=== PATIENT | male | born 1960 | race Caucasian/White ===

== ENCOUNTER → 2019-06-30 | Outpatient (CLI) | payer BC ==
--- NOTE | 2019-06-30 23:21 | CONS ---
CONSULTATION REASON FOR CONSULTATION: Sleep apnea. Jesus is 58. I diagnosed this patient having obstructive sleep apnea back in 2011. At that time the patient was found to have severe MELVINA with an AHI of 82 and the patient was given a CPAP pressure of 14 cm of water. He is still using the same CPAP unit, which is a Respironics Madrigal unit set at a pressure of 14 cm. He is using a Rodriguez FX small-sized nose mask. Treatment remains extremely successful and the patient remains compliant. At times his has noted that he is having some limited amount of snoring. In general, the patient has been averaging about 8 hours and 12 minutes of CPAP use per night and his CPAP use for more than 4 hours is 100%. His AHI is down to 2.2. No periodic breathing. No leaks around the mask. Treatment as such is extremely successful. No new-onset comorbidities other than BPH. PAST MEDICAL HISTORY: 1. MELVINA. 2. BPH. 3. Obesity. PAST SURGICAL HISTORY: 1. Achilles tendon surgery in 2011. 2. Left shoulder surgery in 2013. DRUG ALLERGIES: NOT KNOWN. OUTPATIENT MEDICATIONS: 1. Citalopram 40 mg each morning. 2. Ibuprofen 800 mg on a p.r.n. basis. 3. Multivitamin. SOCIAL HISTORY: Nonsmoker. No history of alcoholism. No history of IV drugs. FAMILY HISTORY: Negative for sleep apnea. Family history is positive for heart problems and hypertension. REVIEW OF SYSTEMS: Fourteen-point review of systems was done. Occasional snoring while on the CPAP, yet for the most part there are no reported apneas, no insomnia, no choking or gasping for air. No nocturia. No grinding of the teeth. No sleepwalking. No dry mouth. No anxiety or panic attacks. No palpitations. No heartburn. No chest pain. No shortness of breath. He has history of sexual dysfunction, history of depression, for which he is on citalopram for now. He does not fall asleep during day-to-day activities. He is wide awake during the day. He is going to bed between 7 and 8 p.m., waking up at 4 a.m. in the morning without being somnolent or sleepy. PHYSICAL EXAMINATION: VITAL SIGNS: BP is 149/87, pulse 62, respirations 16, temperature 97.3, saturation 96% on room air. Height is 5 feet 10 inches, weight is 280. Neck size is 20 inches. GENERAL APPEARANCE: Calm, comfortable. HEAD: Atraumatic, normocephalic. NECK: Supple. No JVD. No goiter or neck masses. Mallampati class IV. LUNGS: Clear to auscultation. HEART: Heart sounds are regular rate and rhythm. Normal S1, S2. No S3, S4. No murmurs. ABDOMEN: Soft, nontender. No organomegaly. EXTREMITIES: No edema. No cyanosis or clubbing. NEUROLOGIC: Alert and oriented x3. No focal neurological deficits. PSYCHIATRIC: Negative for anxiety. Positive for depression. IMPRESSION: 1. Symptomatic severe obstructive sleep apnea, apnea/hypopnea index of 82, still on a CPAP pressure of 14. Treatment remains extremely successful and the patient is utilizing the same pressure that was offered to him back in 2011. His weight has remained stable between 278 and 280 pounds. Meanwhile the patient is having some occasional limited snoring. 2. Obesity; body mass index of 39.6. 3. Hypersomnia, improved while on CPAP. 4. Benign prostatic hypertrophy. 5. History of depression, maintained on citalopram. PLAN: 1. Encourage weight loss. 2. Increase the pressure up to 15 cm of water to eliminate the snoring. 3. Continue using the Rodriguez FX small-sized nose pillows. 4. Encourage further weight loss. 5. See me back in a year's time in followup, earlier if needed. Treatment is successful for the time being. KAVITHA / THERESAN: [id number] /
== END | disposition home or self-care (01) ==
LOC: SLEEP 16:03
PROVIDERS: ATTEND Internal Medicine Critical Care Medicine
DX: G47.33 Obstructive sleep apnea (adult) (pediatric) (principal); E66.9 Obesity, unspecified; N40.0 Benign prostatic hyperplasia without lower urinary tract symptoms; F32.9 Major depressive disorder, single episode, unspecified; Z68.39 Body mass index [BMI] 39.0-39.9, adult; Z99.89 Dependence on other enabling machines and devices; Z98.890 Other specified postprocedural states; Z79.899 Other long term (current) drug therapy
CPT/HCPCS: 99211

== ENCOUNTER → 2019-07-10 | Outpatient (CLI) | payer BC ==
--- NOTE | 2019-07-10 11:02 | MR ---
EXAMINATION TYPE: MR iac wo/w con DATE OF EXAM: 07/10/2019 COMPARISON: None HISTORY: Tinnitus / Hearing loss left TECHNIQUE: Multiplanar, multisequence images of the brain and brainstem with small modvj-bi-nbus and high resolu tion images through the internal auditory canals is performed without and with IV contrast, utilizing 13 mL intravenous Gadavist . FINDINGS: Diffusion weighted images demonstrate no evidence of a recent infarct or other diffusion ab normality. There is probable arachnoid cyst posterior to the right cerebellar hemisphere measuring 5 .5 cm x 2.2 cm in size.. Scattered hyperintensities on inversion recovery T2-weighted sequences are p resent within the subcortical and juxtacortical white matter. Approximately 15-20 lesions are present , the largest on axial image 23 in the left parietal lobe measures 5 mm. The ventricular system and c isternal spaces are normal in size and appearance. The brain volume is age appropriate. There is no cerebellopontine angle mass. Internal auditory canals show a normal appearance. No evident mass. Midline structures demonstrate normal morphology. The craniocervical junction appears within normal limits. Post contrast images demonstrate no abnormal enhancement. The dural venous sinuses appear pa tent. The visualized sinuses are remarkable for mucosal disease within the ethmoid air cells and air- fluid level in the sphenoid sinus and the globes are intact. IMPRESSION: Arachnoid cyst posterior fossa as described. Nonspecific white matter demyelination could be related to Lyme disease, multiple sclerosis, hypertension, migraine headaches, vasculitis. Mild s inus disease, correlate for sphenoid sinusitis.
== END | disposition home or self-care (01) ==
LOC: RADMRIMAIN 08:46
PROVIDERS: ATTEND Otolaryngology
DX: G93.0 Cerebral cysts (principal); R90.89 Other abnormal findings on diagnostic imaging of central nervous system; G37.9 Demyelinating disease of central nervous system, unspecified; H91.8X2 Other specified hearing loss, left ear
CPT/HCPCS: 70553; A9585

== ENCOUNTER → 2020-09-06 | Outpatient (CLI) | payer BC ==
--- NOTE | 2020-09-06 17:04 | PN ---
PROGRESS NOTE This is a followup on this [facility] his obstructive sleep apnea. The patient has been diagnosed having severe MELVINA with an AHI of 82 and the patient is currently on a CPAP pressure of 15 cm of water. He has an older generation Madrigal Respironics unit. The machine is very much functional. The machine is non noisy. Treatment has been effective. No issues with his CPAP treatment. Interval history is positive for a TURP and since then he has been urinating more effectively and the patient is taking Myrbetriq. No respiratory difficulties. No nighttime arousals for gasping or choking sensation. Based on the compliance data, the patient has been averaging around 8 hours of sleep per night. The patient is going to bed between 6-8 p.m. and waking up around 5 to 6 am in the morning. His CPAP use for more than 4 hours is 100%. No leaks. No periodic breathing. His apnea-hypopnea index is down to 2.1 while on treatment. He is using a Rodriguez FX nose pillows. No respiratory difficulties, otherwise. His interval history is positive for a TURP that was performed for symptoms of BPH. REVIEW OF SYSTEMS: Fourteen-point review of system was done and positive findings are mentioned in history of present illness. BP is 157/91, pulse 56, respirations 16, temperature 97.7, saturation 97% on room air. Height is 5, 11 inches, weight is 284 and neck size 19-3/4 of an inch, BMI 39.6. GENERAL APPEARANCE: Calm, comfortable. HEAD: Atraumatic, normocephalic. NECK: Supple. No JVD. No goiter or neck masses. LUNGS: Clear to auscultation. HEART: Heart sounds are regular rate and rhythm, normal S1, S2. No murmurs. ABDOMEN: Soft, nontender, no organomegaly. EXTREMITIES: No edema, no cyanosis or clubbing. NEUROLOGIC: Awake and alert, there is no focal neurological deficits. PSYCHIATRIC: Negative for anxiety or depression. IMPRESSION: 1. MELVINA severe with an AHI of 82, successfully treated with a CPAP pressure of 15 cm of water. 2. Snoring, recovered. 3. Obesity. Weight is stable with a BMI of 39.6 with a current weight of 284 pounds. 4. Hypersomnia, recovered. 5. BPH, status post TURP. 6. Chronic anxiety/depression. PLAN: 1. Continue same medication. 2. Encourage further weight loss. 3. Keep the Rodriguez FX nasal pillows. 4. Continue CPAP therapy at a pressure of 15 cm of water. 5. No need to update the machine at this point in time as long as his treatment is successful. See me back in a few years in followup. His DME is [facility]. MMODL / IJN: [id number] /
== END | disposition home or self-care (01) ==
LOC: SLEEP 14:40
PROVIDERS: ATTEND Internal Medicine Critical Care Medicine
DX: G47.33 Obstructive sleep apnea (adult) (pediatric) (principal); E66.9 Obesity, unspecified; G47.10 Hypersomnia, unspecified; F32.9 Major depressive disorder, single episode, unspecified; F41.9 Anxiety disorder, unspecified; Z99.89 Dependence on other enabling machines and devices; Z98.890 Other specified postprocedural states; Z68.39 Body mass index [BMI] 39.0-39.9, adult

== ENCOUNTER → 2020-11-04 | Day surgery (SDC) | payer BC ==
[2020-10-31 12:00] VITALS: BMI 40.8
[~2020-11-04] MED LIST: LACTATED RINGERS 1,000 ML IV SCH; LIDOCAINE 1% (10MG/ML) FOR IV START INTRADERMA ONE; PROPOFOL 10 MG/ML 20 ML VIAL IV ONE
[2020-11-04 09:05] VITALS: RESP 16; TEMP 97.5
--- NOTE | 2020-11-04 10:15 | P.PCN ---
Date of Procedure: 11/04/20 Procedure(s) Performed: BRIEF HISTORY: Patient is a 59-year-old pleasant 8 male scheduled for an elective colonoscopy as a part of screening for colorectal neoplasia and family history of colon cancer. Mother was diagnosed with colon cancer at age 70. PROCEDURE PERFORMED: Colonoscopy. PREOPERATIVE DIAGNOSIS: Screening for colon cancer/family history of colon cancer. IV sedation per Anesthesia. PROCEDURE: After informed consent was obtained, the patient, was brought into the endoscopy unit. IV sedation was administered by Anesthesia under continuous monitoring. Digital rectal examination was normal. Initially the Olympus CF-160 flexible video colonoscope was then inserted in the rectum, gradually advanced into the cecum without any difficulty. Careful examination was performed as the scope was gradually being withdrawn. Ileocecal valve and the appendiceal orifice were visualized and appeared normal. Prep was excellent. Mucosa of the cecum, ascending colon, transverse colon, descending colon, sigmoid colon, and rectum appeared normal. Retroflexion was performed in the rectum and monitor hemorrhoids were seen. The patient tolerated the procedure well. IMPRESSION: Normal-appearing colon from rectum to cecum with no evidence of colorectal neoplasia . Small internal hemorrhoids. RECOMMENDATIONS: Findings of this examination were discussed with the patient as well as his family.. He was advised to have a repeat screening colonoscopy every 5 years because of the family history of colon cancer
[2020-11-04 10:57] VITALS: BP 128/81; PULSE 53
== END ==
LOC: ORWHC2ENDO 08:50
PROVIDERS: ATTEND Internal Medicine Gastroenterology
DX: Z12.11 Encounter for screening for malignant neoplasm of colon (principal); K64.8 Other hemorrhoids; Z80.0 Family history of malignant neoplasm of digestive organs; G47.33 Obstructive sleep apnea (adult) (pediatric); Z99.89 Dependence on other enabling machines and devices; F41.9 Anxiety disorder, unspecified; Z79.1 Long term (current) use of non-steroidal anti-inflammatories (NSAID); Z79.899 Other long term (current) drug therapy
CPT/HCPCS: J2704; G0105

== ENCOUNTER 2021-01-29 08:52 | Emergency (ER) | payer BC ==
[2021-01-29 08:57] VITALS: BP 126/78
[2021-01-29] MEDS ORDERED: SODIUM CHLORIDE 0.9% 1,000 ML IV STA (09:13)
--- NOTE | 2021-01-29 09:21 | ED ---
Recheck HPI - General Chief Complaint: Recheck/Abnormal Lab/Rx Stated Complaint: fatigue,headache,fever Time Seen by Provider: 01/29/21 09:00 Source: patient Mode of arrival: ambulatory Limitations: no limitations - History of Present Illness Initial Comments: Patient is a 60-year-old male presenting to the emergency Department with complaints of fatigue, fever and headache for the past 2 days. Patient states he received his first covid vaccine on , 3 days ago, starting the following day he started having extreme fatigue, headache and intermittent fevers. He has been alternating between Tylenol and Motrin. He states that the body aches are also severe, his symptoms has persisted until today as we've decided to come in to be seen. To his knowledge, he has not had the Covid virus. He states his was positive for the virus 2 weeks ago. He did not display any symptoms before his vaccine. He denies any chest pains or shortness of breath, mild cough. He admits to some mild nausea, no vomiting or diarrhea. His appetite is low. He has no further complaints at this time. He did take a Motrin about 2 hours prior to arrival. His vital signs are stable. - Related Data Home Medications Medication Instructions Recorded Confirmed Cholecalciferol [Vitamin D3 (25 2,000 unit PO DAILY 10/31/20 11/04/20 Mcg = 1000 Iu)] Citalopram Hydrobromide 40 mg PO DAILY 10/31/20 11/04/20 [Citalopram HBr] Meloxicam [Mobic] 7.5 mg PO DAILY PRN 10/31/20 11/04/20 Multivit-Min/Folic/Vit K/Lycop 1 each PO DAILY 10/31/20 11/04/20 [Men's Multivitamin Tablet] [place]-3-6-9 1 cap PO DAILY 10/31/20 11/04/20 Psyllium Husk [Metamucil] 4 tab PO DAILY 10/31/20 11/04/20 Allergies Allergy/AdvReac Type Severity Reaction Status Date / Time No Known Allergies Allergy Verified 01/29/21 08:57 Review of Systems ROS Statement: Those systems with pertinent positive or pertinent negative responses have been documented in the HPI. ROS Other: All systems not noted in ROS Statement are negative. Past Medical History Past Medical History: Osteoarthritis (OA), Sleep Apnea/CPAP/BIPAP Additional Past Medical History / Comment(s): C-PAP MACHINE., ARTHRITIS HANDS. History of Any Multi-Drug Resistant Organisms: None Reported Past Surgical History: Prostate Surgery Additional Past Surgical History / Comment(s): TURP (07/2019), LEFT SHOULDER SURGERY, (2018), ACHILLES LEFT HEEL (2011) Past Anesthesia/Blood Transfusion Reactions: No Reported Reaction Past Psychological History: Anxiety Smoking Status: Never smoker Past Alcohol Use History: Occasional Past Drug Use History: None Reported - Past Family History Mother Family Medical History: Cancer Additional Family Medical History / Comment(s): PASSED FROM COLON CANCER (APRIL 2020) General Exam - General Exam Comments Initial Comments: GENERAL: Patient is well-developed and well-nourished. Patient is nontoxic and in no acute distress. HEAD: Atraumatic, normocephalic. EYES: Pupils equal round and reactive to light, extraocular movements intact, sclera anicteric, conjunctiva are normal. Eyelids were unremarkable. ENT: TMs normal, nares patent, oropharynx clear without exudates. Moist mucous membranes. NECK: Normal range of motion, supple without lymphadenopathy or JVD. LUNGS: Unlabored respirations. Breath sounds clear to auscultation bilaterally and equ al. No wheezes rales or rhonchi. HEART: Regular rate and rhythm without murmurs, rubs or gallops. ABDOMEN: Soft, nontender, normoactive bowel sounds. No guarding, no rebound. No masses appreciated. : Deferred MUSCULOSKELETAL: Normal extremities with adequate strength and normal range of motion, no pitting or edema. No clubbing or cyanosis. NEUROLOGICAL: Patient is alert and oriented x 3. Motor and sensory are also intact. Cranial nerves II through XII grossly intact. Symmetrical smile. Normal speech, normal gait. PSYCH: Normal mood, normal affect. SKIN: Warm, Dry, normal turgor, no rashes or lesions noted. Limitations: no limitations Course Vital Signs 01/29/21 01/29/21 08:54 08:57 Temperature 99.0 F 99.6 F Pulse Rate 76 90 Respiratory 20 18 Rate Blood Pressure 126/78 126/78 O2 Sat by Pulse 98 96 Oximetry Medical Decision Making - Medical Decision Making Patient is a 60-year-old male here for body aches, fatigue, headache and intermittent fevers over the past 3 days after receiving his first shot of Covid vaccine. His vital signs are stable upon arrival. White count is normal, sodium is 133, rapid Covid is positive. I discussed these findings with the patient. Patient most likely had a virus before his vaccine which then could have exacerbated his symptoms. Patient did meet criteria for Covid antiviral therapy. Patient did receive this infusion, no adverse side effects. He is stable for discharge. He will follow up with his PCP. He is in agreement with this plan of care. Return parameters were discussed with the patient and he verbalized understanding. Case discussed with Dr. Crenshaw. - Lab Data Result diagrams: 01/29/21 09:21 01/29/21 09:21 Lab Results 01/29/21 01/29/21 01/29/21 Range/Units 09:21 09:21 09:21 WBC 4.5 (3.8-10.6) k/uL RBC 4.90 (4.30-5.90) m/uL Hgb 14.9 (13.0-17.5) gm/dL Hct 41.2 (39.0-53.0) % MCV 84.2 (80.0-100.0) fL MCH 30.4 (25.0-35.0) pg MCHC 36.1 (31.0-37.0) g/dL RDW 13.1 (11.5-15.5) % Plt Count 134 L (150-450) k/uL MPV 7.7 Neutrophils % 82 % Lymphocytes % 11 % Monocytes % 5 % Eosinophils % 0 % Basophils % 0 % Neutrophils # 3.7 (1.3-7.7) k/uL Lymphocytes # 0.5 L (1.0-4.8) k/uL Monocytes # 0.2 (0-1.0) k/uL Eosinophils # 0.0 (0-0.7) k/uL Basophils # 0.0 (0-0.2) k/uL Hyperchromasia Slight Sodium 133 L (137-145) mmol/L Potassium 3.5 (3.5-5.1) mmol/L Chloride 104 (98-107) mmol/L Carbon Dioxide 22 (22-30) mmol/L Anion Gap 7 mmol/L BUN 16 (9-20) mg/dL Creatinine 0.90 (0.66-1.25) mg/dL Est GFR (CKD-EPI)AfAm >90 (>60 ml/min/1.73 sqM) Est GFR (CKD-EPI)NonAf >90 (>60 ml/min/1.73 sqM) Glucose 127 H (74-99) mg/dL Calcium 8.4 (8.4-10.2) mg/dL Total Bilirubin 0.9 (0.2-1.3) mg/dL AST 75 H (17-59) U/L ALT 48 (4-49) U/L Alkaline Phosphatase 86 (38-126) U/L Total Protein 6.5 (6.3-8.2) g/dL Albumin 3.7 (3.5-5.0) g/dL Coronavirus (PCR) Detected A (Not Detectd) Disposition Clinical Impression: COVID-19 Disposition: HOME SELF-CARE Condition: Stable Instructions (If sedation given, give patient instructions): Coronavirus Disease 2019 (COVID-19) Additional Instructions: Please return to the Emergency Department if symptoms worsen or any other concerns. Continue Tylenol and/or Motrin for fever and body aches. Increase water intake. Follow-up with your regular doctor. Is patient prescribed a controlled substance at d/c from ED?: No Referrals: Aida Shukla MD [Primary Care Provider] - 1-2 days Time of Disposition: 12:09
[2021-01-29 09:43] LABS: ALT 48 U/L (4-49); AST 75 U/L (17-59); African American GFR (CKD) >90 (>60 ml/min/1.73 sqM); Albumin 3.7 g/dL (3.5-5.0); Alkaline Phosphatase 86 U/L (38-126); Anion Gap 7 mmol/L; Blood Urea Nitrogen 16 mg/dL (9-20); Calcium 8.4 mg/dL (8.4-10.2); Carbon Dioxide 22 mmol/L (22-30); Chloride 104 mmol/L (98-107); Glucose 127 mg/dL (74-99); Non-African American GFR(CKD) >90 (>60 ml/min/1.73 sqM); Potassium 3.5 mmol/L (3.5-5.1); Sodium 133 mmol/L (137-145); Total Bilirubin 0.9 mg/dL (0.2-1.3); Total Protein 6.5 g/dL (6.3-8.2)
[2021-01-29 09:50] LABS: Basophils % (A) 0 %; Eosinophils % (A) 0 %; HCT 41.2 % (39.0-53.0); HGB 14.9 gm/dL (13.0-17.5); Hyperchromasia Slight; Lymphocytes # (A) 0.5 k/uL (1.0-4.8); Lymphocytes % (A) 11 %; MCH 30.4 pg (25.0-35.0); MCHC 36.1 g/dL (31.0-37.0); MCV 84.2 fL (80.0-100.0); Mean Platelet Volume 7.7; Monocytes # (A) 0.2 k/uL (0-1.0); Monocytes % (A) 5 %; Neutrophils # (A) 3.7 k/uL (1.3-7.7); Neutrophils % (A) 82 %; Platelet Count 134 k/uL (150-450); RDW 13.1 % (11.5-15.5); WBC 4.5 k/uL (3.8-10.6)
[2021-01-29] MEDS ORDERED: BAMLANIVIMAB (EUA) 700 MG, ETESEVIMAB (EUA) 1,400 MG in SODIUM CHLORIDE 0.9% 50 ML IVPB ONE (11:00)
[2021-01-29 11:56] VITALS: PULSE 90; RESP 18; TEMP 99.6
== END 2021-01-29 12:28 | disposition home or self-care (01) ==
LOC: EC 08:52
DX: U07.1 COVID-19 (principal); F41.9 Anxiety disorder, unspecified; G47.30 Sleep apnea, unspecified; Z79.899 Other long term (current) drug therapy; Z99.89 Dependence on other enabling machines and devices
CPT/HCPCS: 36415; 80053; 85025; 87635; 99284; 96365; 96361; Q0245

== ENCOUNTER → 2021-09-19 | Outpatient (CLI) | payer BC ==
--- NOTE | 2021-09-19 17:56 | PN ---
PROGRESS NOTE Jesus is coming in for an annual check. He is known to have obstructive sleep apnea, AHI of 82, currently on CPAP pressure of 15 cm of water. The patient has an older- generation Respironics Madrigal unit. We were interested in updating his CPAP machine. Nevertheless, we gave him another year and currently, with the ongoing recall on his current machine, we are interested in updating his machine to a newer-generation ResMed unit. On his compliance data, he continues to be using his machine on an average of 8 hours and 24 minutes per night. AHI is down to 1.7. No periodic . He is still using the Rodriguez FX nasal pillows. No other new complaints otherwise for now. His weight has been essentially stable; 2 pounds lower compared to last evaluation. No comorbidities or new-onset comorbidities since his last evaluation. PHYSICAL EXAMINATION: BP is 155/95, pulse 53, respirations 18, temperature 97.4, saturation 99% on room air. Weight is 282, height is 5 feet 10 inches. BMI is 40.2. [place] score is 1. GENERAL APPEARANCE: Calm, comfortable. HEAD: Atraumatic, normocephalic. Neck is supple. No JVD. No goiter or neck masses. Mallampati class IV. LUNGS: Clear to auscultation. Heart sounds are regular rate and rhythm. Normal S1, S2. No S3, S4. No murmurs. ABDOMEN: Soft, nontender. No organomegaly. EXTREMITIES: No edema. No cyanosis or clubbing. Neurologically awake and alert. There is no focal neurological deficit. IMPRESSION: 1. Symptomatic obstructive sleep apnea, severe; AHI of 82. The patient is in need of a new CPAP unit. Current machine is old and on recall. It is set at a pressure of 15 cm of water with successful treatment. 2. Obesity with stable weight. BMI is 40. 3. Hypersomnia, recovered. 4. Benign prostatic hypertrophy. 5. History of TURP. 6. Chronic anxiety. 7. Chronic depression. PLAN: I am going to give this patient a prescription for a newer-generation ResMed CPAP unit at a pressure of 15 cm of water with Rodriguez FX nasal pillows, medium size. The patient will obtain his CPAP machine. The patient will see me back in the office in 30 to 90 days to assess clinical response and compliancy. Prescription will be sent to [facility]. No need for repeating his sleep study at this point in time. His condition is stable. Comorbidities are stable. Will continue to follow. MMODL / IJN: [id number] /
== END | disposition home or self-care (01) ==
LOC: SLEEP 15:26
PROVIDERS: ATTEND Internal Medicine Critical Care Medicine
DX: G47.33 Obstructive sleep apnea (adult) (pediatric) (principal); G47.10 Hypersomnia, unspecified; N40.0 Benign prostatic hyperplasia without lower urinary tract symptoms; F41.9 Anxiety disorder, unspecified; F32.A Depression, unspecified; Z68.41 Body mass index [BMI] 40.0-44.9, adult

== ENCOUNTER → 2021-12-12 | Outpatient (CLI) | payer BC ==
--- NOTE | 2021-12-12 15:49 | P.PN ---
Subjective Progress Note Date: 12/12/21 61-year-old male patient coming in for a compliance check. The patient was able to obtain a new CPAP unit and this is a ResMed air sense 11 which is set at a CPAP pressure of 15 cm of water with C-Flex of 3. I evaluated this patient in the office back in 09/19/2021. At that time, the patient was interested in updating his CPAP unit as his previously she had been quite old. He had been very compliant to his CPAP unit. I ordered the machine and the patient is coming to see me within 30-90 days for a compliance check. Collected the compliance data between 11/12/2021 and 12/11/2021 and the patient utilizes machine more than 4 hours 100% of the time. The patient been averaging around 8 hours and 32 minutes of CPAP use per night. The patient has developed an AHI of 3.5 while on treatment. Leak has been in the order of 0.1 L per minute. Patient is very happy with his machine. The machine is quiet and is waking up refreshed and alert during the day. Sleep is not fragmented. He maintains a stable body weight. He is still using the quiroz fX nasal pillows. No issues with nighttime shortness of breath or chest pain or heartburn. No issues with nocturia. He wakes up once probably the middle of the night and is able to generate sleep without any major difficulties. He is able to drive his car without getting drowsy or sleepy. Objective - Exam review of systems a full review of system was done and the positive findings are almost above history of present illness. No issues with anxiety or depression for now and both of these conditions are well managed. No headaches. No tiredness or fatigue and his sleep is improved and the patient's Morgan sleepiness score score is down to 0. BP is 150/94 pulse is at 60 respirations 16 weight is 292 temperature 97.6 saturations 96% on room air oxygen The patient appeared well nourished and normally developed. Vital signs as documented. Head exam is unremarkable. No scleral icterus or corneal arcus noted. Neck is without jugular venous distension, thyromegaly, or carotid br uits. Carotid upstrokes are brisk bilaterally. the patient has a Mallampati class IV with significant crowding of the posterior oropharynxLungs are clear to auscultation and percussion. Cardiac exam reveals the PMI to be normally sized and situated. Rhythm is regular. First and second heart sounds normal. No murmurs, rubs or gallops. Abdominal exam reveals normal bowel sounds, no masses, no organomegaly and no aortic enlargement. Extremities are nonedematous and both femoral and pedal pulses are normal.Examination of the skin revealed no evidence of significant rashes, suspicious appearing nevi or other concerning lesions.Neurologically, the patient is awake and alert and the patient does not have any focal neurological deficit. Cranial nerves are essentially intact. Assessment and Plan Plan: 1 obstructive sleep apnea, severe, symptomatic with an AHI of 82. The patient has received a new CPAP unit which is a ResMed air sense 11 which is set at a pressure 15 cm of water. He remains extremely compliant. Treatment remains extremely successful as the patient continues to benefit and the patient's symptoms of fever apnea remains essentially inactive and stable. No hypersomnia and sleepiness. Morgan down to 0. 2 obesity with a weight of 292 Pounds and a Body Mass Index of about 40 3 BPH 4 Chronic Anxiety/Depression 5 Hypersomnia Recovered Plan Check the Patient's CPAP Unit, the Patient Is Function and the Patient Extremity Compliant Patient meets insurance tenderness for CPAP use and compliancy Keep same mask interface Keep same pressure setting which is 15 cm of water with C-Flex of 3 Encourage weight loss See her back in a years time, earlier if needed.
== END | disposition home or self-care (01) ==
LOC: SLEEP 15:20
PROVIDERS: ATTEND Internal Medicine Critical Care Medicine
DX: G47.33 Obstructive sleep apnea (adult) (pediatric) (principal); E66.9 Obesity, unspecified; N40.0 Benign prostatic hyperplasia without lower urinary tract symptoms; F32.A Depression, unspecified; Z68.41 Body mass index [BMI] 40.0-44.9, adult

== ENCOUNTER → 2022-10-08 | Outpatient (CLI) | payer BC ==
--- NOTE | 2022-10-08 10:51 | US ---
EXAMINATION TYPE: US duplex aorta DATE OF EXAM: 10/08/2022 COMPARISON: NONE CLINICAL HISTORY: Z13.6 screening. AAA screening TECHNIQUE: Multiple sonographic images of the abdominal aorta are obtained. FINDINGS: EXAM MEASUREMENTS: Abdominal Aorta: Proximal: 2.7 x 2.9 cm Mid: 2.3 x 2.4 cm Distal: 2.1 x 1.5 cm Bifurcation: 1.4 cm 1.7 cm CARRIER PACKER NOTES: IMPRESSION: No evidence for abdominal aortic aneurysm.
== END | disposition home or self-care (01) ==
LOC: RADUSWWP 09:56
PROVIDERS: ATTEND Family Medicine
DX: Z13.6 Encounter for screening for cardiovascular disorders (principal); G47.33 Obstructive sleep apnea (adult) (pediatric)
CPT/HCPCS: 93979

== ENCOUNTER → 2023-09-17 | Outpatient (CLI) | payer BC ==
--- NOTE | 2023-09-17 16:39 | P.PN ---
Progress Note - Text Progress Note Date: 09/17/23 On today's evaluation of 09/17/2023, seeing the patient follow-up in the sleep Center regarding his obstructive sleep apnea. His laceration was done in November 2021. The patient has obstructive sleep apnea and the patient has been repeated on CPAP therapy depression 15 cm of water. I update his CPAP machine for years back and the patient is a very compliant utilizing a quiroz fx nasal pillows. Based on the compliance data collected from the machine, the patient has been averaging about 7.2 hours of CPAP use per night. His leak is minimal in order of 60 to segment and his AHI is down to 1.9. He is currently very much dependent on his machine. He wears it every night. His compliancy is in order of 100%. His achieved more than 4 hours of usage on a percent of the time. His weight is down to 280 pounds as the patient is currently on Trulicity. He was hospitalized for syncope and the workup for that syncope was essentially negative. The patient is being seen by cardiology also. No hypersomnia or sleepiness during the day. His Dawson score is down to 0. BP is 122/85 with a pulse of 65 and a respiration of 16 and the temperature 97.9 and the weight is 280 with a BMI of 39.9 Gen. appearance morbidly obese, calm and comfortable, not in acute distress The patient appeared well nourished and normally developed. Vital signs as documented. Head exam is unremarkable. No scleral icterus or corneal arcus noted. Neck is without jugular venous distension, thyromegaly, or carotid bruits. Carotid upstrokes are brisk bilaterally. Patient is crowding of the posterior pharynx and Mallampati class IV. Lungs are clear to auscultation and percussion. Cardiac exam reveals the PMI to be normally sized and situated. Rhythm is regular. First and second heart sounds normal. No murmurs, rubs or gallops. Abdominal exam reveals normal bowel sounds, no masses, no organomegaly and no aortic enlargement. Extremities are nonedematous and both femoral and pedal pulses are normal. Examination of the skin revealed no evidence of significant rashes, suspicious appearing nevi or other concerning lesions.Neurologically, the patient is awake and alert and the patient does not have any focal neurological deficit. Cranial nerves are essentially intact. Assessment Severe MELVINA with an AHI of 82 and currently the patient is a CPAP pressure of 15, he has a newer generation ResMed 11, extremely compliant Obesity with interval weight loss, current weight is down to 280 with a BMI of 39 BPH Chronic anxiety/depression Diabetes mellitus Hypertension Hyperlipidemia Plan Continue CPAP therapy the same level of pressure. Encourage further weight loss CPAP machine was checked. The patient is extremely compliant and the patient is very successful in his treatment. No need for any pressure adjustment Keep the same pressures and mask interface Follow-up in back in one year
== END ==
LOC: 3 N SLEEP 15:05
PROVIDERS: ATTEND Internal Medicine Critical Care Medicine
DX: G47.33 Obstructive sleep apnea (adult) (pediatric) (principal); E11.9 Type 2 diabetes mellitus without complications; E66.9 Obesity, unspecified; E78.5 Hyperlipidemia, unspecified; F32.A Depression, unspecified; F41.9 Anxiety disorder, unspecified; I10 Essential (primary) hypertension; N40.0 Benign prostatic hyperplasia without lower urinary tract symptoms; Z68.39 Body mass index [BMI] 39.0-39.9, adult; Z79.899 Other long term (current) drug therapy
CPT/HCPCS: 99212

== ENCOUNTER → 2023-10-24 | Outpatient (CLI) | payer BC ==
[2023-10-24 15:07] LABS: HCT 49.2 % (39.6-50.0); HGB 16.7 g/dL (13.0-17.0); MCH 29.6 pg (27.0-32.0); MCHC 33.9 g/dL (32.0-37.0); MCV 87.2 FL (80.0-97.0); Mean Platelet Volume 9.2 FL (9.5-12.2); NRBC Per 100 WBC 0 X 10*3/uL (0.00-0.01); Platelet Count 223 X 10*3/uL (140-440); RBC 5.64 X 10*6/uL (4.40-5.60); WBC 7.95 X 10*3/uL (4.50-10.00)
[2023-10-24 15:16] LABS: Blood Urea Nitrogen 11.8 mg/dL (9.0-27.0); Carbon Dioxide 27.4 mmol/L (21.6-31.8); Chloride 103 mmol/L (96-109); Magnesium 2.5 mg/dL (1.5-2.4); Potassium 4.8 mmol/L (3.5-5.5); Sodium 141 mmol/L (135-145)
== END | disposition home or self-care (01) ==
LOC: LABPAT 11:16
PROVIDERS: ATTEND Student in an Organized Health Care Education/Training Program
DX: Z01.812 Encounter for preprocedural laboratory examination (principal); R07.9 Chest pain, unspecified; R06.02 Shortness of breath
CPT/HCPCS: 80051; 82565; 83735; 84520; 85027

== ENCOUNTER 2023-11-01 08:50 | Day surgery (SDC) | payer BC ==
[~2023-11-01 08:50] MED LIST changes: +ALPRAZolam 0.25 MG TAB PO PRN; +ALPRAZolam 0.5 MG TAB PO PRN; +ASPIRIN 325 MG TAB PO ONE; +HEPARIN SODIUM,PORCINE (1 ML) 2,500 UNIT in SODIUM CHLORIDE 0.9% 250 ML IRRIGATION PRN; +HEPARIN SODIUM,PORCINE 10,000 UNIT in SODIUM CHLORIDE 0.9% 1,000 ML IRRIGATION PRN; -LACTATED RINGERS 1,000 ML IV SCH; -LIDOCAINE 1% (10MG/ML) FOR IV START INTRADERMA ONE; +NITROGLYCERIN SL TABS 0.4 MG TAB SUBLINGUAL PRN; -PROPOFOL 10 MG/ML 20 ML VIAL IV ONE; +SODIUM CHLORIDE 0.9% 1,000 ML in EMPTY BAG 1 BAG IV SCH
[2023-11-01] MEDS ORDERED: SODIUM CHLORIDE 0.9% 1,000 ML IV ONE (09:12)
[2023-11-01 09:21] LABS: Glucose,Whole Blood 89 mg/dL (70-110)
[2023-11-01] MEDS ORDERED: LOSARTAN 50 MG TAB PO STA (09:27)
[2023-11-01] MEDS ORDERED: amLODIPine 5 MG TAB PO STA (09:27)
[2023-11-01 09:55] VITALS: RESP 16; TEMP 97.9
[2023-11-01] MEDS ORDERED: HEPARIN SODIUM 1,000 UN/ML (10ML VL) ONE (10:19)
[2023-11-01] MEDS ORDERED: fentaNYL (PF) 50 MCG/ML 2 ML AMP ONE (10:19)
[2023-11-01] MEDS ORDERED: MIDAZOLAM 2 MG/2 ML VIAL IVP ONE (10:41)
[2023-11-01] MEDS ORDERED: fentaNYL (PF) 50 MCG/1 ML VIAL IVP ONE (10:41)
[2023-11-01] MEDS ORDERED: LIDOCAINE 1% INJ 10MG/ML (20 ML MDV) SQ ONE (10:42)
[2023-11-01] MEDS ORDERED: VERAPAMIL SYRINGE (5 MG/10 ML) INTRAARTER ONE (10:47)
[2023-11-01] MEDS ORDERED: HEPARIN SODIUM 1,000 UN/ML (10ML VL) IV ONE (10:51)
[2023-11-01] MEDS ORDERED: IOPAMIDOL-370 100ML BTL INJ ONE (11:00)
[2023-11-01] MEDS ORDERED: RX INFO: IV CONTRAST WAS GIVEN 1 EACH MISC MISCELLANE PRN (11:06)
[2023-11-01] MEDS ORDERED: SODIUM CHLORIDE 0.9% 1,000 ML IV SCH (11:15)
--- NOTE | 2023-11-01 11:58 | P.CARDCATH ---
Date of Procedure: 11/01/23 Description of Procedure: DIAGNOSTIC CORONARY ANGIOGRAPHY and LEFT HEART CATH REPORT PROCEDURES PERFORMED: Left heart catheterization Selective coronary angiography Moderate conscious sedation 17 mins Ultrasound assisted Right radial access INDICATION: Patient was initially seen in clinic for coronary artery calcification. He had a nuclear stress test which did not show any evidence of ischemia. Patient had persistent symptoms of easy fatigue, exertional shortness of breath and lightheadedness. Due to ongoing symptoms even with good medical regimen with good blood pressure control, we will plan for cardiac catheterization to rule out any obstructive coronary artery disease as the etiology. CONSENT: I have discussed the risks, benefits and alternative therapies for the above-mentioned procedure, sedation/analgesia and necessary blood product administration (if indicated, as they pertain to this patient). The patient has indicated understanding and acceptance of the risks and procedures discussed. I explained in the possible risk factors of bleeding, need for emergent vascular or cardiac surgery, stroke and . Often understanding these risks factors, patient decided to proceed with the procedure. Conscious Sedation: Patient's ECG, heart rate, blood pressure, pulse oximetry was monitored throughout the duration of procedure under my direct supervision. 2 mg Versed and 25 mg Fentanyl were used for induction of moderate conscious sedation. Total duration of moderate concious sedation 17 minutes. PROCEDURE: After explaining the risks, benefits and alternatives of the above mentioned procedures in detail to the patient, informed consent was obtained. Patient was taken to the catheterization lab, prepped and draped in usual sterile fashion using universal precuations. Barbow and cintia test were performed to confirm adequate perfusion to fingers. Ultrasound was used to identify the radial artery. 1% lidocaine was infiltrated over the right radial artery. A 6-Swedish sheath was placed and secured in the right radial artery using modified Seldinger technique. The sheath was flushed and 5 mg verapamil was administered intra-arterially. J tipped wire was advanced under fluoroscopic guidance. Once the wire tip reached aortic root 7000 units of IV heparin was given. Over the wire JL4 diagnostic catheter was advanced. Wire was removed, catheter was flushed and manipulated under fluoroscopy to selectively engaged the left coronary ostium. Left coronary angioplasty was performed in different angiographic projections. This catheter was exchanged for a JR4 diagnostic catheter over the wire. The catheter was flushed and manipulated to cross the aortic valve. LV pressures were obtained. Pullback was performed across aortic valve and catheter was manipulated to selectively engage the right coronary ostium under fluoroscopic guidance. Right coronary angiography was performed in different angiographic projections. Catheter was removed over the wire. Radial sheath was flushed. The right radial sheath was removed and a TR band was placed with excellent patent hemostasis was achieved. The patient tolerated the procedure well. Patient was transported back to the post catheterization holding area in stable condition. Angiographic images were reviewed in detail. HEMODYNAMICS: Aortic Pressure: 110/70 mmHg. LV pressure: 115/6 mmHg. LVEDP 14 mmHg. SELECTIVE CORONARY ARTERIOGRAPHY: LEFT MAIN: The left main is a large caliber vessel which bifurcates into the LAD and circumflex. Left main appears angiographically normal. LEFT ANTERIOR DESCENDING CORONARY ARTERY: LAD is a large caliber vessel which wraps around to the apex. Proximal LAD has 10-20% calcific luminal irregularities, mid LAD has 10-20% calcific luminal irregularities. Distal LAD has mild luminal irregularities. LAD gives rise to small caliber diagonal 1 and diagonal 2 branch which has moderate ostial disease. LEFT CIRCUMFLEX CORONARY ARTERY: It is nondominant vessel. Left circumflex is a moderate caliber vessel. It has 10-20% luminal irregularities. It gives rise to a high OM1 which is a medium caliber vessel and appears angiographically normal. Testes continues to give OM 2 and OM 3 which is small-caliber and appears angiographically normal RIGHT CORONARY ARTERY: Dominant vessel. The right coronary artery is a large caliber vessel which gives PDA and PLV branch. It has mild luminal irregularities. It appears angiographically normal There is mildly reduced flow in all the coronary arteries IMPRESSION: Mild nonobstructive CAD Coronary calcification on Cardiac CT Globally mild slow flow in the coronary arteries Normal left sided filling pressures PLAN: Aggressive risk factor modification per most recent ACC/AHA guidelines. 150 cc fluids for 3 hours Discharge home in 3 hours Follow-up in the office in 1-2 weeks. Findings are updated to the patient and the family. Performing Physician Barry Guillory MD
[2023-11-01 15:57] VITALS: PULSE 62
[2023-11-01 17:04] VITALS: BP 106/71
== END 2023-11-01 14:40 | disposition home or self-care (01) ==
LOC: CATHCVL 08:50
PROVIDERS: ATTEND Student in an Organized Health Care Education/Training Program
DX: I25.10 Atherosclerotic heart disease of native coronary artery without angina pectoris (principal); I10 Essential (primary) hypertension; E78.5 Hyperlipidemia, unspecified; E66.9 Obesity, unspecified; Z68.41 Body mass index [BMI] 40.0-44.9, adult; Z82.49 Family history of ischemic heart disease and other diseases of the circulatory system; Z79.899 Other long term (current) drug therapy
CPT/HCPCS: 93458; 76937; 99152; C1769 ×2; C1894; J2250; J2001; J1644; Q9967; J3010

== ENCOUNTER → 2024-06-08 | Outpatient (CLI) | payer BC | END | disposition home or self-care (01) | LOC: LABPRL 08:45 | PROVIDERS: ATTEND Urology | DX: R35.1 Nocturia (principal) | CPT/HCPCS: 84153 ==